=== PATIENT | male | born 1960 | race African-American/Black ===

== ENCOUNTER 2022-04-25 10:08 | Inpatient (IN) | payer SELFPAY ==
[2022-04-25] MEDS ORDERED: Morphine 4 MG/ML VIAL ONE (11:23)
[2022-04-25] MEDS ORDERED: Ondansetron PF 4 MG/2 ML Vial ONE (11:24)
[2022-04-25 12:01] LABS: #Basophils 0.1 10x3/uL (0.0-0.2); #Eosinphils 0.1 10x3/uL (0.0-0.5); #Monocytes 0.5 10x3/uL (0.0-1.1); #Neutrophils 7.1 10x3/uL (1.5-8.4); %Basophils 0.7 % (0.0-2.0); %Eosinophils 0.6 % (0.0-6.0); %Lymphocytes 10.9 % (18.0-47.0); %Monocytes 5.8 % (0.0-10.0); %Neutrophils 81.8 % (40.0-75.0); Hemoglobin 15.7 g/dL (13.5-17.5); Mean Corpuscular HGB CONC 34.1 g/dL (32.0-36.0); Mean Corpuscular Hemoglobin 32.1 pg (27.0-33.0); Mean Corpuscular Volume 94.3 fl (81.2-95.1); Mean Platelet Volume 10.5 fl (7.4-10.4); Platelet Count 226 10x3/uL (150-450); RBC Distribution Width 13.7 % (11.5-14.5); Red Blood Cell (RBC) Count 4.89 10x6/uL (4.32-5.72); White Blood Cell (WBC) Count 8.7 10x3/uL (3.5-10.5)
[2022-04-25 12:10] LABS: ALT (SGPT) 19 U/L (8-55); AST (SGOT) 40 U/L (5-34); Albumin 4.7 g/dL (3.4-4.8); Alkaline Phosphatase 82 U/L (40-110); Anion Gap 21 mmol/L (10-20); BUN (Urea Nitrogen) 12 mg/dL (8.4-25.7); Bilirubin, Total 1.5 mg/dL (0.2-1.2); Calc. Creatinine Clearance 0 mL/min (70-130); Calcium 9.8 mg/dL (7.8-10.44); Carbon Dioxide 21 mmol/L (23-31); Chloride 103 mmol/L (98-107); Estimated GFR 73; Globulin 3.7 g/dL (2.4-3.5); Glucose 120 mg/dL (80-115); Lipase 32 U/L (8-78); Potassium 4.7 mmol/L (3.5-5.1); Protein, Total 8.4 g/dL (5.8-8.1); Sodium 140 mmol/L (136-145)
[2022-04-25 12:16] LABS: Bilirubin Neg (Negative); Blood, Urine 150 (Negative); Clarity Clear (Clear); Glucose, Urine (Dipstick) Normal (Negative); Ketone, Urine 15 mg/dL (Negative); Leukocyte Negative (Negative); Nitrite Negative (Negative); Protein, Urine (Dipstick) Negative (Neg-Trace); Specific Gravity, Urine 1.015 (1.002-1.036); Urobilinogen Normal mg/dL (Less than 2)
[2022-04-25 12:17] LABS: Bacteria/HPF None Seen HPF (None Seen); Squamous Epithelial 0-3 HPF (0-3); WBC/HPF None Seen HPF (0-3)
[2022-04-25 12:19] LABS: CKMB 3.1 ng/mL (0-6.6)
[2022-04-25] MEDS ORDERED: Iopamidol 300 61% 100 ML VIAL FS ONE (12:32)
[2022-04-25] MEDS ORDERED: Aspirin 325 MG TAB ONE (12:43)
[2022-04-25] MEDS ORDERED: Tamsulosin HCl 0.4 MG CAP ONE (13:44)
[2022-04-25] MEDS ORDERED: Nitroglycerin 0.4 MG TAB (25 Tab Bottle) SL PRN (14:37)
[2022-04-25 14:55] LABS: Troponin I 0.044 ng/mL (< 0.028)
[2022-04-25] MEDS ORDERED: Ondansetron PF 4 MG/2 ML Vial IVP PRN (14:57)
[2022-04-25] MEDS ORDERED: Acetaminophen 325 MG TAB PO PRN (14:57)
[2022-04-25] MEDS ORDERED: Ondansetron ODT 4 MG TAB PO PRN (14:57)
[2022-04-25] MEDS ORDERED: HYDROcodone/Acetaminophen 5/325 mg Tablet PO PRN (14:57)
[2022-04-25 16:12] LABS: SARS-CoV-2 NAA Rapid Test Not Detected (NotDetected)
[2022-04-25 18:07] LABS: Troponin I 0.037 ng/mL (< 0.028)
[2022-04-25] MEDS ORDERED: Famotidine 20 MG TAB ONE (22:25)
[2022-04-26] MEDS ORDERED: Sodium Chloride 0.9% 1,000 ML IV SCH (01:00)
[2022-04-26] MEDS ORDERED: HYDROcodone/Acetaminophen 5/325 mg Tablet ONE (05:59)
[2022-04-26 06:39] LABS: #Basophils 0.1 10x3/uL (0.0-0.2); #Eosinphils 0.1 10x3/uL (0.0-0.5); #Monocytes 0.7 10x3/uL (0.0-1.1); #Neutrophils 3.5 10x3/uL (1.5-8.4); %Basophils 0.8 % (0.0-2.0); %Eosinophils 1.5 % (0.0-6.0); %Lymphocytes 32.7 % (18.0-47.0); %Monocytes 10.6 % (0.0-10.0); %Neutrophils 54.1 % (40.0-75.0); Mean Corpuscular HGB CONC 34.6 g/dL (32.0-36.0); Mean Corpuscular Hemoglobin 32.5 pg (27.0-33.0); Mean Platelet Volume 9.5 fl (7.4-10.4); Platelet Count 192 10x3/uL (150-450); RBC Distribution Width 13.6 % (11.5-14.5); Red Blood Cell (RBC) Count 4.31 10x6/uL (4.32-5.72); White Blood Cell (WBC) Count 6.5 10x3/uL (3.5-10.5)
[2022-04-26 06:41] LABS: Anion Gap 13 mmol/L (10-20); BUN (Urea Nitrogen) 13 mg/dL (8.4-25.7); Calc. Creatinine Clearance 0 mL/min (70-130); Calcium 8.7 mg/dL (7.8-10.44); Carbon Dioxide 22 mmol/L (23-31); Chloride 108 mmol/L (98-107); Estimated GFR 91; Glucose 101 mg/dL (80-115); Sodium 139 mmol/L (136-145)
[2022-04-26] MEDS ORDERED: Aspirin Chewable 81 MG TAB PO SCH (09:00)
[2022-04-26] MEDS ORDERED: Aspirin Chewable 81 MG TAB ONE (09:08)
[2022-04-26] MEDS ORDERED: Tamsulosin HCl 0.4 MG CAP ONE (11:33)
[2022-04-26] MEDS ORDERED: Tamsulosin HCl 0.4 MG CAP PO SCH (12:00)
[2022-04-27] MEDS ORDERED: Famotidine 20 MG TAB PO SCH (09:00)
[2022-04-27] MEDS ORDERED: Tamsulosin HCl 0.4 MG CAP PO SCH (09:00)
== END 2022-04-26 12:20 | disposition home or self-care (01) | DRG 694 ==
LOC: CSHERS 10:08 → CSHERHOLD 14:55
PROVIDERS: ADMIT Family Medicine; ATTEND Hospitalist
DX: N13.0 Hydronephrosis with ureteropelvic junction obstruction (principal); Z20.822 Contact with and (suspected) exposure to COVID-19; F17.210 Nicotine dependence, cigarettes, uncomplicated
CPT/HCPCS: 36415; 71045; 74177; 80048; 80053; 81003; 81015; 82553; 83690; 83880; 84484; 85025; 93005; 96374; 96375; J2270; J2405; J7050; Q9967; U0002

== ENCOUNTER 2024-03-28 12:28 | Emergency (ER) | payer OTHER, SELFPAY ==
[2024-03-28 13:31] LABS: Influenza A by NAA Not Detected (NotDetected); Influenza B by NAA Not Detected (NotDetected); SARS-CoV-2 NAA Rapid Test DETECTED (NotDetected)
== END 2024-03-28 13:14 | disposition home or self-care (01) ==
LOC: CSHERS 12:28
DX: U07.1 COVID-19 (principal); F17.210 Nicotine dependence, cigarettes, uncomplicated
CPT/HCPCS: 99283